=== PATIENT | male | born 1965 | race Caucasian/White ===

== ENCOUNTER 2020-08-08 07:47 | Outpatient (REF) | payer OTHER, SELFPAY | END 2020-08-08 07:48 | disposition home or self-care (01) | LOC: HO.LAB 07:47 | PROVIDERS: PCP Internal Medicine; Visit Provider Internal Medicine | DX: Z20.828 Contact with and (suspected) exposure to other viral communicable diseases (principal) | CPT/HCPCS: C9803; U0003 ==

== ENCOUNTER 2020-08-16 15:19 | Outpatient (REF) | payer OTHER, SELFPAY | END 2020-08-16 15:20 | disposition home or self-care (01) | LOC: HO.LAB 15:19 | PROVIDERS: PCP Internal Medicine; Visit Provider Internal Medicine | DX: Z20.828 Contact with and (suspected) exposure to other viral communicable diseases (principal) | CPT/HCPCS: C9803; U0003 ==

== ENCOUNTER 2020-08-21 06:13 | Outpatient (REF) | payer OTHER, SELFPAY ==
[2020-08-21 07:13] LABS: MANUAL DIFF FLAG NO
[2020-08-21 07:21] LABS: Basophils Absolute Auto 0.1 X10*3/uL (0.0-0.2); Basophils Percent Auto 1.3 % (0-2); Eosinophils Absolute Auto 0.6 X10*3/uL (0.0-0.4); Eosinophils Percent Auto 7.2 % (0-4); Hematocrit 45.1 % (42-52); Hemoglobin 15.3 g/dl (14.0-18.0); Imm Gran Abs Auto 0.04 X10*3/uL (0.00-0.03); Imm Gran Pct Auto 0.5 % (0.0-0.4); Lymphocytes Absolute Auto 3.1 X10*3/uL (1.2-4.9); Lymphocytes Percent Auto 37.1 % (20-40); Mean Corpuscular HGB Conc 33.9 g/dl (31.0-36.0); Mean Corpuscular Hemoglobin 29.2 pg (27.0-33.0); Mean Corpuscular Volume 86.1 fL (80-98); Mean Platelet Volume 10.6 fL (9.4-12.4); Monocytes Absolute Auto 0.8 X10*3/uL (0.1-1.2); Monocytes Percent Auto 9.3 % (2-11); Neutrophils Absolute Auto 3.8 X10*3/uL (2.0-8.3); Neutrophils Percent Auto 44.6 % (45-73); Platelet Count 301 X10*3/uL (160-400); Red Blood Count 5.24 X10*6/uL (4.60-5.80); Red Cell Distribution Width 12.2 % (11.0-16.0); White Blood Count 8.4 X10*3/uL (4.8-10.8)
[2020-08-21 07:43] LABS: Alanine Aminotransferase 29 U/L (0-40); Albumin Level 4.3 g/dL (3.5-5.0); Alkaline Phosphatase 47 U/L (39-117); Anion Gap 13 (12-20); Aspartate Amino Transferase 21 U/L (5-37); Bilirubin Direct 0.3 mg/dL (0.0-0.5); Bilirubin Total 0.9 mg/dL (0.0-1.0); Blood Urea Nitrogen 21 mg/dL (9-16); Carbon Dioxide 26 mmol/L (22-29); Chloride 104 mmol/L (96-108); Cholesterol 173 mg/dL; Estimated Glomerular Filt Rate > 60; Glucose Fasting 99 mg/dL (60-99); HDL Cholesterol 41 mg/dL; LDL Cholesterol Calculated 109 mg/dl; Potassium 4.7 mmol/l (3.3-5.1); Sodium 138 mmol/L (135-145); Total Protein 6.8 g/dL (6.5-8.0); Triglycerides 115 mg/dL
[2020-08-21 08:06] LABS: Prostate Specific Antigen 1.36 ng/mL (<0.05-4.0)
== END 2020-08-21 06:14 | disposition home or self-care (01) ==
LOC: HO.LAB 06:13
PROVIDERS: Visit Provider Internal Medicine
DX: R53.83 Other fatigue (principal); E78.5 Hyperlipidemia, unspecified
CPT/HCPCS: 36415; 80051; 80061; 80076; 82565; 82947; 84153; 84520; 85025

== ENCOUNTER 2020-09-04 07:24 | Outpatient (REF) | payer OTHER, SELFPAY | END 2020-09-04 07:25 | disposition home or self-care (01) | LOC: HO.LAB 07:24 | PROVIDERS: PCP Internal Medicine; Visit Provider Internal Medicine | DX: Z20.828 Contact with and (suspected) exposure to other viral communicable diseases (principal) | CPT/HCPCS: C9803; U0003 ==

== ENCOUNTER 2020-09-30 09:32 | Outpatient (REF) | payer OTHER, SELFPAY | END 2020-09-30 09:33 | disposition home or self-care (01) | LOC: HO.LAB 09:32 | PROVIDERS: Visit Provider Internal Medicine | DX: Z20.822 Contact with and (suspected) exposure to COVID-19 (principal) | CPT/HCPCS: 36415; C9803; U0003 ==

== ENCOUNTER 2020-10-14 06:10 | Outpatient (REF) | payer OTHER, SELFPAY | END 2020-10-14 06:11 | disposition home or self-care (01) | LOC: HO.LAB 06:10 | PROVIDERS: Visit Provider Internal Medicine | DX: Z20.822 Contact with and (suspected) exposure to COVID-19 (principal) | CPT/HCPCS: 36415; C9803; U0003; U0005 ==

== ENCOUNTER 2020-10-16 12:59 | Outpatient (REF) | payer OTHER, SELFPAY ==
--- NOTE | ~2020-10-16 | XR_ITS ---
EXAMINATION: XR CHEST CLINICAL INFORMATION: Fatigue, shortness of breath, cough COMPARISON: Chest radiographs 06/24/2018, 02/05/2014 TECHNIQUE: 2 views of the chest were obtained. FINDINGS: The lungs are clear. There is no airspace consolidation or groundglass opacity or effusion. The heart is normal in size. The hilar and mediastinal contours are normal. No acute bony abnormality. XR/XR chest 2V IMPRESSION: Unremarkable examination.
[2020-10-16 13:53] LABS: MANUAL DIFF FLAG NO
[2020-10-16 14:03] LABS: Basophils Absolute Auto 0.1 X10*3/uL (0.0-0.2); Eosinophils Absolute Auto 0.4 X10*3/uL (0.0-0.4); Eosinophils Percent Auto 3.7 % (0-4); Hematocrit 45.1 % (42-52); Imm Gran Abs Auto 0.04 X10*3/uL (0.00-0.03); Imm Gran Pct Auto 0.4 % (0.0-0.4); Lymphocytes Absolute Auto 3.6 X10*3/uL (1.2-4.9); Lymphocytes Percent Auto 36.6 % (20-40); Mean Corpuscular HGB Conc 33.3 g/dl (31.0-36.0); Mean Corpuscular Hemoglobin 28.2 pg (27.0-33.0); Mean Corpuscular Volume 84.9 fL (80-98); Mean Platelet Volume 10.7 fL (9.4-12.4); Monocytes Absolute Auto 0.6 X10*3/uL (0.1-1.2); Neutrophils Absolute Auto 5.2 X10*3/uL (2.0-8.3); Neutrophils Percent Auto 52.3 % (45-73); Platelet Count 304 X10*3/uL (160-400); Red Blood Count 5.31 X10*6/uL (4.60-5.80); Red Cell Distribution Width 12.1 % (11.0-16.0); White Blood Count 9.9 X10*3/uL (4.8-10.8)
[2020-10-16 14:19] LABS: Anion Gap 13 (12-20); Blood Urea Nitrogen 20 mg/dL (9-16); Calcium 9.4 mg/dL (8.4-10.2); Carbon Dioxide 27 mmol/L (22-29); Chloride 104 mmol/L (96-108); Estimated Glomerular Filt Rate > 60; Glucose Random 118 mg/dL (60-115); Potassium 3.8 mmol/L (3.3-5.1); Sodium 140 mmol/L (135-145)
== END 2020-10-16 13:00 | disposition home or self-care (01) ==
LOC: HO.HMGCX 12:59
PROVIDERS: PCP Internal Medicine; Visit Provider Internal Medicine
DX: R53.83 Other fatigue (principal); R06.02 Shortness of breath; R05 Cough
CPT/HCPCS: 36415; 71046; 80048; 85025

== ENCOUNTER 2020-11-27 13:42 | Outpatient (REF) | payer OTHER, SELFPAY | END 2020-11-27 13:43 | disposition home or self-care (01) | LOC: HO.LAB 13:42 | PROVIDERS: Visit Provider Internal Medicine | DX: Z20.822 Contact with and (suspected) exposure to COVID-19 (principal) | CPT/HCPCS: 36415; C9803; U0003; U0005 ==

== ENCOUNTER 2020-12-05 07:41 | Outpatient (REF) | payer OTHER, SELFPAY ==
[2020-12-05 09:43] LABS: SARS COV2 PCR INHOUSE NEGATIVE (Negative)
== END 2020-12-05 07:42 | disposition home or self-care (01) ==
LOC: HO.LAB 07:41
PROVIDERS: Visit Provider Internal Medicine
DX: Z20.822 Contact with and (suspected) exposure to COVID-19 (principal)
CPT/HCPCS: C9803; U0003

== ENCOUNTER 2020-12-09 08:34 | Outpatient (REF) | payer OTHER, SELFPAY ==
[2020-12-09 11:07] LABS: SARS COV2 PCR INHOUSE POSITIVE (Negative)
== END 2020-12-09 08:35 | disposition home or self-care (01) ==
LOC: HO.LAB 08:34
PROVIDERS: Visit Provider Internal Medicine
DX: Z20.822 Contact with and (suspected) exposure to COVID-19 (principal)
CPT/HCPCS: C9803; U0003

== ENCOUNTER 2021-06-02 14:40 | Outpatient (REF) | payer OTHER, SELFPAY ==
[2021-06-02 16:21] LABS: COVID-19 Test Negative (Negative)
== END 2021-06-02 14:41 | disposition home or self-care (01) ==
LOC: HO.LAB 14:40
PROVIDERS: PCP Internal Medicine; Visit Provider Internal Medicine
DX: Z20.822 Contact with and (suspected) exposure to COVID-19 (principal)
CPT/HCPCS: 36415; 87635; C9803

== ENCOUNTER → 2021-11-05 08:15 | Outpatient (BNVA) | payer OTHER, SELFPAY | PROVIDERS: PCP Internal Medicine; Visit Provider Orthopaedic Surgery | DX: M67.442 Ganglion, left hand (principal); R20.0 Anesthesia of skin | CPT/HCPCS: 20612; 99212 ==

== ENCOUNTER → 2021-12-10 08:32 | Outpatient (BNVA) | payer OTHER, SELFPAY | PROVIDERS: PCP Internal Medicine; Visit Provider Orthopaedic Surgery | DX: Z13.89 Encounter for screening for other disorder (principal) ==

== ENCOUNTER 2022-01-05 12:53 | Outpatient (REF) | payer OTHER, SELFPAY ==
--- NOTE | ~2022-01-05 | US_ITS ---
EXAMINATION: ULTRASOUND EXTREMITY NONVASCULAR CLINICAL INFORMATION: Numbness in the radial left hand distal to the A1 justus area of ring finger. COMPARISON: None TECHNIQUE: Limited imaging through the palmar aspect of 4th and 5th metacarpals were performed. FINDINGS: There is a complex anechoic cystic lesion with internal echoes and mild peripheral vascularity at the base of third and fourth digit. It is approximately 0.3 cm deep to the skin surface at the base of the 3rd and 4th digit, nontender. Question ganglion cyst. US/US extremity nonvascular IMPRESSION: There is a complex cystic lesion with internal echoes at the base of the 3rd and 4th digits/metacarpal likely small ganglion cyst. It corresponds around the A1 justus area of 4th digit.
== END 2022-01-05 12:54 | disposition home or self-care (01) ==
LOC: HO.HMGCX 12:53
PROVIDERS: Visit Provider Orthopaedic Surgery
DX: M79.89 Other specified soft tissue disorders (principal)
CPT/HCPCS: 76882

== ENCOUNTER 2022-07-28 14:29 | Outpatient (REF) | payer OTHER, SELFPAY ==
--- NOTE | ~2022-07-28 | XR_ITS ---
EXAMINATION: XR FOOT, RIGHT CLINICAL INFORMATION: Pain and swelling right foot COMPARISON: None TECHNIQUE: AP, lateral, and oblique views of the right foot. FINDINGS: There is no visible acute fracture, dislocation or subluxation. No bony erosive changes. The soft tissues are normal. There is a small calcaneal heel and retrocalcaneal enthesophytes. The ankle mortise and subtalar joints are normal. XR/XR foot RT min 3V IMPRESSION: Small calcaneal heel and retrocalcaneal enthesophytes. No visible acute fracture, dislocation or subluxation seen.
== END 2022-07-28 14:30 | disposition home or self-care (01) ==
LOC: HO.HMGCX 14:29
PROVIDERS: PCP Internal Medicine; Visit Provider Internal Medicine
DX: M79.671 Pain in right foot (principal); R60.0 Localized edema
CPT/HCPCS: 73630

== ENCOUNTER → 2022-09-23 07:57 | Outpatient (BNVA) | payer OTHER, SELFPAY | PROVIDERS: PCP Internal Medicine; Visit Provider Orthopaedic Surgery | DX: R20.0 Anesthesia of skin (principal) ==

== ENCOUNTER 2022-10-01 05:59 | Day surgery (SDC) | payer OTHER, SELFPAY ==
[2022-09-24 12:40] VITALS: BMI 29.9
--- NOTE | 2022-09-30 09:57 | HO.ANESPROP2 ---
Documented by User: Brigitte Bradley NP 09/30/22 09:58 HPI - Anesthesia Eval Consult details Narrative: 57yo M for Left Hand Excisional Mass biopsy PMFSH Active Problems Active Problems: All Active Problems (Updated 11/05/21 @ 09:08 by Aleyda Madrid MD) Numbness of finger (Acute) Mass of soft tissue of left upper extremity (Acute) Somatic dysfunction of right sacroiliac joint (Acute) Past Medical History Medical History High blood cholesterol High blood pressure Social History Social History Patient Tobacco Use Status: Former Tobacco user Quit Date: 10 years ago Use of substances other than those prescribed or required for medical reasons: No Are you DNR?: No Advance Directives: No Advance Directives Information Provided: Yes Current occupational status: employed Current occupation: Tech/computers/rt hand Meds Allergies Allergy/AdvReac Type Severity Reaction Status Date / Time No Known Allergies Allergy Verified 09/23/22 08:23 Home Medications Medication Instructions Recorded Confirmed Last Taken Type atorvastatin 20 mg tablet 20 mg PO DAILY 03/24/21 03/24/21 Unknown History gabapentin 600 mg tablet 600 mg PO DAILY 03/24/21 03/24/21 Unknown History ibuprofen 800 mg tablet 800 mg PO TID 03/24/21 03/24/21 Unknown History lisinopril 20 mg tablet 20 mg PO DAILY 03/24/21 03/24/21 Unknown History Exam Exam Date and Time: September 30, 2022 0957 Height,Weight and Vital Signs: Height 5 ft 7 in Weight 86.636 kg Assessment and Plan Assessment Anesthesia Assessment: Chart Reviewed Documented by User: Katty Garces MD 10/01/22 08:18 PMFSH Past Medical History Medical History High blood cholesterol High blood pressure Family History Family history of problems with anesthesia: No Surgical History History of Problems with Anesthesia: No Social History Social History Patient Tobacco Use Status: Former Tobacco user Quit Date: 10 years ago Use of substances other than those prescribed or required for medical reasons: No Are you DNR?: No Advance Directives: No Advance Directives Information Provided: Yes Current occupational status: employed Current occupation: Tech/computers/rt hand Meds Allergies Allergy/AdvReac Type Severity Reaction Status Date / Time No Known Allergies Allergy Verified 09/23/22 08:23 Home Medications Medication Instructions Recorded Confirmed Last Taken Type atorvastatin 20 mg tablet 20 mg PO DAILY 03/24/21 03/24/21 Unknown History gabapentin 600 mg tablet 600 mg PO DAILY 03/24/21 03/24/21 Unknown History ibuprofen 800 mg tablet 800 mg PO TID 03/24/21 03/24/21 Unknown History lisinopril 20 mg tablet 20 mg PO DAILY 03/24/21 03/24/21 Unknown History Exam Airway Mallampati Class: II TM Dist: >3cm Neck ROM: Full Heart: rrr Lungs: cta Assessment and Plan Assessment Anesthesia Assessment: Anesthesia Plan Discussed Final Anesthetic Review Family History of Problems with Anesthesia: No History of Problems with Anesthesia: No NPO: Yes ASA Class: II Final Preanesthetic Review: No Changes in Pt Med Stat, Meds/Allgs Chart Reviewed, Consent Obtained/Reviewed and Anes Risks/Benef Reviewed Patient Risk: Low Procedure Risk: Low Anesthetic Plan Anesthetic Plan: GA and Agree w/ Assess. and Plan Disposition: Standard PACU
[2022-10-01 06:10] VITALS: BMI 28.1
[2022-10-01 06:13] VITALS: BP 140/80; PULSE 80; RESP 18; TEMP 36.7; O2SAT 97
--- NOTE | 2022-10-01 07:41 | MHC.SHP ---
Pre-Procedural Eval Section A Date of Service: 10/01/22 The patient is an INPATIENT: No Changes since office visit: No Cold of Flu in the past 2 weeks, No New Medical Problems, No Changes in Medication and No Patient answered all questions The History & Physical has been completed within 30 days and I have reviewed it.: No Section B Chief Complaint: left hand mass Allergies: Allergies Allergy/AdvReac Type Severity Reaction Status Date / Time No Known Allergies Allergy Verified 09/23/22 08:23 Plan I have reviewed the history and physical and performed a pertinent physical examination on my patient. No changes have occurred unless specified. Time Spent With Patient Time: Total time managing care of this patient today ____ minutes.
--- NOTE | 2022-10-01 07:42 | W.PM.OPN ---
Operative Note Operative Note Date of Service: 10/01/22 Narrative: Operative Note Narrative: Preop diagnosis: 1. Left soft tissue hand mass Postop diagnosis: Same Procedure: 1. Left soft tissue hand mass excisional biopsy Surgeon: Aleyda Madrid MD Anesthesia: General Anesthesia Findings: There was a 1.5 cm diameter cystic appearing mass filled with hematoma and dark purple blood found in the volar aspect of the 3rd web space. No major vessel was found to be feeding this mass. The radial digital nerve to the ring finger was stretched over the volar ulnar aspect of the mass, and its axons were somewhat splayed. Implants: none Tourniquet time: 26 minutes EBL: 5.0 ml Specimen: left soft tissue hand mass, possible pseudoaneurysm Drains: None Complications: None Disposition: Brought to the recovery room in stable condition Plan: Follow-up in 10-14 days for wound check, suture removal and to check pathology Indications: The patient is a 57 year old man with a left soft tissue hand mass . The risks and benefits of operative treatment, including but not limited to risk of damage to blood vessels, nerves, tendons, infection, recurrence, persistent pain or numbness, incomplete resolution of preoperative symptoms, or need for further surgery were discussed with the patient and they wished to proceed with surgery. Procedure: Once consent was obtained patient was brought back to the operating suite and placed in the operating table in a supine position. . Perioperative antibiotics and anesthesia was administered by the anesthesia team. A tourniquet was applied to the proximal aspect of the left upper extremity and the limb was prepped and draped in a standard surgical fashion. The limb was elevated exsanguinated with Esmarch bandage and the tourniquet inflated to 250 mm of mercury for a total tourniquet time of 26 minutes. A 2 cm oblique incision was made centered over the patient's left hand mass in the volar aspect of the 3rd webspace. The incision was made through the skin to the subcutaneous tissues using a 15. Blade. I then dissected down to the level of the mass. The mass was approximately 1.5 to 2 cm in diameter, somewhat spherical and filled with hematoma and dark purple blood. The radial digital nerve to the ring finger was noted to be stretched over the volar ulnar aspect of the mass and its axons were noted to be somewhat splayed. The radial digital nerve to the ring finger was carefully dissected off of the mass and pushed ulnarly to his more anatomic location where it was not under tension. The mass itself was dissected down to what initially appeared to be a stalk deep in the volar aspect of the 3rd web space. Along this we found perhaps 2 or 3 smaller dark blood filled spherical masses each measuring perhaps 3 mm or so in diameter. We did not find any attachment to a larger vessel, neither the common digital artery nor to either of the digital arteries to the ring or middle fingers. We did isolate down to some very small capillary like feeder vessels and this was cauterized with bipolar electrocautery. The mass was then removed and placed on the back table to be sent for histopathology. No other masses were appreciated. At this point the tourniquet was deflated and hemostasis obtained with a brief period of local pressure . The wound was copiously irrigated with normal saline. The skin edges were reapproximated with 5-0 nylon suture. The wound was infiltrated with some 1% lidocaine with epinephrine for postop pain control and a sterile dressing was applied. The patient appears to have tolerated the procedure well and with no complications. All digits were well vascularized conclusion of the case.
[2022-10-01 08:57] VITALS: BP 136/80; PULSE 95; RESP 16; TEMP 36.8; O2SAT 96
[2022-10-01 09:02] VITALS: BP 133/81; PULSE 90; RESP 16; O2SAT 93
[2022-10-01 09:07] VITALS: BP 136/66; PULSE 86; RESP 16; O2SAT 95
[2022-10-01 09:12] VITALS: BP 141/90; PULSE 81; RESP 16; O2SAT 97
[2022-10-01 09:27] VITALS: BP 127/81; PULSE 76; RESP 16; TEMP 36.8; O2SAT 98
== END 2022-10-01 09:59 ==
PROVIDERS: PCP Internal Medicine; Visit Provider Orthopaedic Surgery
PROC: (CPT 11422; principal; 2022-10-01 07:30)
DX: M79.89 Other specified soft tissue disorders (principal); I10 Essential (primary) hypertension; R20.0 Anesthesia of skin; E78.00 Pure hypercholesterolemia, unspecified
CPT/HCPCS: 11422; 88304; J0690; J1100; J2405; J2795; J3010

== ENCOUNTER → 2022-10-14 08:36 | Outpatient (BNVA) | payer OTHER, SELFPAY | PROVIDERS: PCP Internal Medicine; Visit Provider Orthopaedic Surgery | DX: Z13.89 Encounter for screening for other disorder (principal) ==

== ENCOUNTER → 2022-11-25 08:19 | Outpatient (BNVA) | payer OTHER, SELFPAY | PROVIDERS: PCP Internal Medicine; Visit Provider Orthopaedic Surgery | DX: Z13.89 Encounter for screening for other disorder (principal) ==

== ENCOUNTER 2022-12-22 08:35 | Outpatient (REF) | payer OTHER, SELFPAY ==
--- NOTE | ~2022-12-22 | XR_ITS ---
EXAMINATION: XR HAND, LEFT CLINICAL INFORMATION: Left hand pain COMPARISON: None available. TECHNIQUE: PA, lateral, and oblique views of the left hand. FINDINGS: No fracture or dislocation. Joint space narrowing throughout the interphalangeal joints. Osteophytes throughout the hand. The soft tissues are unremarkable. XR/XR hand LT min 3V IMPRESSION: No acute fracture or malalignment. Degenerative changes throughout the hand.
== END 2022-12-22 08:36 | disposition home or self-care (01) ==
LOC: HO.HOSX 08:35
PROVIDERS: PCP Internal Medicine; Visit Provider Orthopaedic Surgery
DX: M79.642 Pain in left hand (principal)
CPT/HCPCS: 73130

== ENCOUNTER 2023-01-26 09:35 | Outpatient (REF) | payer OTHER, SELFPAY ==
--- NOTE | ~2023-01-26 | MR_ITS ---
EXAMINATION: MR HAND WITHOUT AND WITH CONTRAST, LEFT CLINICAL INFORMATION: Lump between the 3rd and 4th metacarpophalangeal joints. Finger numbness. Surgery in September of 2022. Pain and numbness. COMPARISON: Left hand radiographs dated 12/22/2022. TECHNIQUE: Multisequence MR imaging of the left hand was obtained before and after the IV administration of 8.5 mL Gadavist contrast on a high-field strength scanner. FINDINGS: BONE: No acute fracture or dislocation. No marrow edema or evidence of acute osseous injury. Mild articular cartilage thinning with tiny marginal osteophytes within the interphalangeal joints, better seen on the prior radiographs. No concerning lytic or blastic osseous lesion. No abnormal postcontrast marrow enhancement. MUSCLES/TENDONS: The visualized muscles and tendons are intact. No transverse tendon tear or tendon retraction. No postcontrast enhancement. LIGAMENTS: The collateral ligaments are grossly intact. SOFT TISSUES: Interposed between the 3rd and 4th proximal phalangeal bases there is a heterogeneously isointense T1 and hyperintense T2 focus which demonstrates thin, somewhat irregular peripheral postcontrast enhancement. Overall this measures approximately 2.5 x 1.5 x 2.1 cm (AP x ML x CC). No adjacent inflammatory change. No additional soft tissue mass or fluid collection. MR/MR hand LT wo/w con IMPRESSION: 1. Interposed between the 3rd and 4th proximal phalangeal bases there is a heterogeneously enhancing cystic focus measuring up to 2.5 cm. No adjacent inflammatory change. Differential diagnosis includes a giant cell tumor of the tendon sheath and complex ganglion cyst. The mass abuts the volar neurovascular bundle and a peripheral nerve sheath tumor or vascular lesion could also be considered. 2. Mild osteoarthritis within the interphalangeal joints, better seen on the prior radiographs. 3. No acute osseous abnormality. No concerning lytic or blastic osseous lesion.
== END 2023-01-26 09:36 | disposition home or self-care (01) ==
LOC: HO.MRI 09:35
PROVIDERS: PCP Internal Medicine; Visit Provider Orthopaedic Surgery
DX: R20.0 Anesthesia of skin (principal); M79.89 Other specified soft tissue disorders
CPT/HCPCS: 73220; A9585

== ENCOUNTER 2023-03-17 08:13 | Outpatient (AMB) | payer OTHER, SELFPAY ==
--- NOTE | 2023-03-17 08:19 | MHC.OFFVIS ---
Intake Vital Signs 03/17/23 08:19 Height 5 ft 6 in Intake Visit Reasons: MRI left hand review Intake Note: Bob 58 yr old male presents today for his review of his left hand. States his discomfort is mainly in the morning and night time. Allergies No Known Allergies Allergy (Verified 03/17/23 08:19) [facility] MRI left hand review HPI Details Bob is a 58 year old right hand dominant man who presents for an MRI review of his left hand. He has a recurrent mass on his left hand, S/P mass excision, DOS: 10/01/22. Interestingly, this mass recurred within a few weeks of surgery. ? He says the masses on his hand are tender. He says the recurrent mass has been changing in size. When it is smaller it is less visible on the palmar side of his hand. Most of his discomfort occurs in the mornings and at night. He says the mass occasionally takes on a purplish tinge. he continues to have numbness in his ring finger, worse in the mornings. This has been present prior to his excision surgery, and he has no numbness in any other digits He says he has been able to remain active and has been golfing often [facility] Medical History High blood cholesterol High blood pressure Social History Patient Tobacco Use Status: Former Tobacco user Quit Date: 10 years ago Current occupational status: employed Current occupation: Tech/computers/rt hand Review of Systems Const All systems reviewed & are unremarkable except as noted in HPI and below Physical Exam Const General: no acute distress and alert Orientation/consciousness: patient oriented x3 Neuro General: patient oriented x3 Extrem Other: Evaluation of Left Upper Extremity: The patient is alert, oriented, and in no acute distress Neuro: He still has numbness in the radial digital nerve distribution to the left ring finger. Intact sensation to the ulnar digital nerve distribution. He also has intact sensation to the ulnar digital nerve distribution of the middle finger Vascular: Cap refill brisk ROM: He can make a fist and extend all his digits No swelling, erythema, or warmth No overlying skin changes. He has a recurrence of a mass on the volar aspect of his hand, radial to the A1 justus area at the base of the ring finger. The mass is also extending into the dorsal aspect of his 3rd webspace, measuring 1.2cm in diameter. It is mildly tender. I can push between the two masses and feel they are connected Left hand MRI FINDINGS: BONE: No acute fracture or dislocation. No marrow edema or evidence of acute osseous injury. Mild articular cartilage thinning with tiny marginal osteophytes within the interphalangeal joints, better seen on the prior radiographs. No concerning lytic or blastic osseous lesion. No abnormal postcontrast marrow enhancement. MUSCLES/TENDONS: The visualized muscles and tendons are intact. No transverse tendon tear or tendon retraction. No postcontrast enhancement. LIGAMENTS: The collateral ligaments are grossly intact. SOFT TISSUES: Interposed between the 3rd and 4th proximal phalangeal bases there is a heterogeneously isointense T1 and hyperintense T2 focus which demonstrates thin, somewhat irregular peripheral postcontrast enhancement. Overall this measures approximately 2.5 x 1.5 x 2.1 cm (AP x ML x CC). No adjacent inflammatory change. No additional soft tissue mass or fluid collection. IMPRESSION: ? 1.? Interposed between the 3rd and 4th proximal phalangeal bases there is a heterogeneously enhancing cystic focus measuring up to 2.5 cm. No adjacent inflammatory change. Differential diagnosis includes a giant cell tumor of the tendon sheath and complex ganglion cyst. The mass abuts the volar neurovascular bundle and a peripheral nerve sheath tumor or vascular lesion could also be considered. ? 2.? Mild osteoarthritis within the interphalangeal joints, better seen on the prior radiographs. ? 3.? No acute osseous abnormality. No concerning lytic or blastic osseous lesion. Dictated By: Jose Alfredo Noriega MD 02/02/23 Pathology report, 10/01/22 Diagnosis Soft tissue, left hand, excision: Blood clot with organization; small focus of benign adipose tissue. Psych Appearance: grossly normal Affect: normal affect Attitude: cooperative Results Reviewed Results Reviewed: 03/17/23 08:56 Lidocaine HCl 2 % MPF [Xylocaine 2 % MPF] 5 ml .ROUTE .STK-MED ONE Assessment & Plan Assessment & Plan (1) Numbness of finger: Code(s): R20.0 - Anesthesia of skin (2) Mass of soft tissue of left upper extremity: Code(s): M79.89 - Other specified soft tissue disorders Plan Assessment and plan: 1. Left hand volar and dorsal 3rd webspace mass, recurrence S/P excision Date of Aspiration: 11/05/21 DOS: 10/01/22 Pathology returned showing this was a blood clot, etiology unclear Radial and just distal to the A1 justus area of the left ring finger The mass also appears to be extending into the dorsal aspect of the 3rd webspace. I educated him about this condition and reviewed his MRI I recommend aspiration today, and repeat surgery in the future. The patient is in agreement Aspiration #1: The risks and benefits of aspiration, including but not limited to risk of damage to blood vessels, nerves, tendons, infection, failure to improve symptoms, increased pain, and possible need for further aspirations or surgical intervention. After obtaining written consent, I sterilely prepped the area over the left hand mass. I then injected subcutaneously with a small amount 1% lidocaine. I then passed an 18 gauge needle into the mass. Initially when applying negative pressure there was no fluid removed, indicating a solid component to the mass, but eventually I removed ~1mL of red blood. The patient tolerated this well and with no complications. The risks and benefits of operative treatment were discussed with the patient and the patient wishes to proceed with surgery. These risks include, but are not limited to risk of damage to blood vessels, nerves, tendons, infection, recurrence, incomplete relief of preoperative symptoms, persistent pain, possible need for further surgery and the risks associated with regional blocks and anesthesia. The plan is to take the patient to the operating room sometime in the next few weeks for the following procedures: 1. Left hand recurrent mass repeat excision, under general All of the preoperative paperwork including the consent was filled out today. All the patient's questions were answered. The patient understands that they will be contacted by our corporate scheduler soon to schedule this procedure. He would like to have this done sometime in June, after golf season He denies Diabetes, blood thinners, asthma, heart, lung, kidney issues 2. Left ring finger radial sided numbness No numbness on the ulnar aspect of the digit, or the ulnar aspect of the middle finger. This was present prior to the excisional biopsy on 10/01/2022. No change following the removal of his ring finger mass May be possible neuropraxia We will manage this conservatively Please note that greater than 30 minutes was spent with this patient going over the history, evaluating the patient and radiographs, formulating possible treatment options, discussing them with the patient, and documenting the visit. Scribed for Aleyda Mardid MD by Celestino Bello, medical office technologist, on 03/17/23 at 9:25 AM, EST. Coding Level of Care Code Est Pt Level 4 (69896) Diagnoses Numbness of finger R20.0 Mass of soft tissue of left upper extremity M79.89
== END 2023-03-17 09:23 | disposition home or self-care (01) ==
PROVIDERS: PCP Internal Medicine; Visit Provider Orthopaedic Surgery
DX: R22.32 Localized swelling, mass and lump, left upper limb (principal); R20.0 Anesthesia of skin; M79.89 Other specified soft tissue disorders
CPT/HCPCS: 10160; 99214

== ENCOUNTER → 2023-03-17 08:13 | Outpatient (BNVA) | payer OTHER, SELFPAY | PROVIDERS: PCP Internal Medicine; Visit Provider Orthopaedic Surgery ==

== ENCOUNTER 2024-06-09 08:15 | Day surgery (SDC) | payer OTHER, SELFPAY ==
[2024-06-08 07:03] VITALS: BMI 30.1
--- NOTE | 2024-06-08 09:49 | P.CONAN_ITS ---
Documented by User: Brigitte Bradley NP 06/08/24 09:52 HPI - Anesthesia Eval Consult details Narrative: 59yo M for Colonoscopy PMFSH Active Problems Active Problems: All Active Problems Numbness of finger (Acute) Mass of soft tissue of left upper extremity (Acute) Somatic dysfunction of right sacroiliac joint (Acute) Past Medical History Medical History (Updated 06/08/24 @ 06:58 by Elvira Schmidt RN) Tarsal tunnel syndrome Seasonal allergies Deviated septum High blood pressure High blood cholesterol Family History Family history of problems with anesthesia: No Surgical History Surgical History (Updated 06/08/24 @ 06:59 by Elvira Schmidt RN) Hx of appendectomy Hx of cervical spine surgery H/O colonoscopy History of Problems with Anesthesia: No Social History Social History Patient Tobacco Use Status: Former Tobacco user Advance Directives: No Advance Directives Information Provided: Yes Current occupational status: employed Current occupation: Tech/computers/rt hand Meds Allergies Allergy/AdvReac Type Severity Reaction Status Date / Time No Known Allergies Allergy Verified 06/09/24 08:35 Home Medications ?Medication ?Instructions ?Recorded ?Confirmed ?Last Taken ?Type atorvastatin 20 mg tablet 20 mg PO DAILY 03/24/21 06/09/24 Unknown History gabapentin 600 mg tablet 600 mg PO DAILY 03/24/21 06/09/24 Unknown History ibuprofen 800 mg tablet 800 mg PO TID PRN Pain 03/24/21 06/09/24 Unknown History lisinopril 20 mg tablet 20 mg PO DAILY 03/24/21 06/09/24 Unknown History fexofenadine 180 mg tablet 180 mg PO DAILY PRN Allergy 06/08/24 06/09/24 Unknown History Symptoms multivitamin 1 tab PO DAILY 06/08/24 06/09/24 Unknown History Exam Height,Weight and Vital Signs: Height 5 ft 7 in Weight 87.09 kg Assessment and Plan Assessment Anesthesia Assessment: Chart Reviewed Final Anesthetic Review Family History of Problems with Anesthesia: No History of Problems with Anesthesia: No Documented by User: Pratima Goldberg MD 06/09/24 08:53 PMFSH Past Medical History Medical History (Updated 06/08/24 @ 06:58 by Elvira Schmidt RN) Tarsal tunnel syndrome Seasonal allergies Deviated septum High blood pressure High blood cholesterol Surgical History Surgical History (Updated 06/08/24 @ 06:59 by Elvira Schmidt RN) Hx of appendectomy Hx of cervical spine surgery H/O colonoscopy Social History Social History Patient Tobacco Use Status: Former Tobacco user Advance Directives: No Advance Directives Information Provided: Yes Current occupational status: employed Current occupation: Tech/computers/rt hand Meds Allergies Allergy/AdvReac Type Severity Reaction Status Date / Time No Known Allergies Allergy Verified 06/09/24 08:35 Home Medications ?Medication ?Instructions ?Recorded ?Confirmed ?Last Taken ?Type atorvastatin 20 mg tablet 20 mg PO DAILY 03/24/21 06/09/24 Unknown History gabapentin 600 mg tablet 600 mg PO DAILY 03/24/21 06/09/24 Unknown History ibuprofen 800 mg tablet 800 mg PO TID PRN Pain 03/24/21 06/09/24 Unknown History lisinopril 20 mg tablet 20 mg PO DAILY 03/24/21 06/09/24 Unknown History fexofenadine 180 mg tablet 180 mg PO DAILY PRN Allergy 06/08/24 06/09/24 Unknown History Symptoms multivitamin 1 tab PO DAILY 06/08/24 06/09/24 Unknown History Exam Airway Mallampati Class: II TM Dist: >3cm Neck ROM: Full Assessment and Plan Assessment Anesthesia Assessment: Anesthesia Plan Discussed Final Anesthetic Review NPO: Yes ASA Class: II Final Preanesthetic Review: No Changes in Pt Med Stat, Meds/Allgs Chart Review ed, Consent Obtained/Reviewed and Anes Risks/Benef Reviewed Patient Risk: Low Procedure Risk: Low Anesthetic Plan Anesthetic Plan: TIVA Disposition: Standard PACU
[2024-06-09 08:33] VITALS: BMI 28.2
[2024-06-09 08:57] VITALS: BP 105/85; PULSE 80; RESP 16; TEMP 37; O2SAT 98
--- NOTE | 2024-06-09 09:18 | MHC.SHP ---
Pre-Procedural Eval Section A - 24 Hr Update-Section A only Date of Service: 06/09/24 The patient is an INPATIENT: No The patient has been examined within 24 hours of the surgical procedure. The History & Physical has been completed within 30 days and I have reviewed it.: Yes Section B - Complete if H&P > 30 days Chief Complaint: hx malignant neoplasm,screening Allergies: Allergies Allergy/AdvReac Type Severity Reaction Status Date / Time No Known Allergies Allergy Verified 06/09/24 08:35 Plan I have reviewed the history and physical and performed a pertinent physical examination on my patient. No changes have occurred unless specified. Time Spent With Patient Time: Total time managing care of this patient today ____ minutes.
[2024-06-09] MEDS: Lactated Ringers 1,000 ML 100 ML IVCONT (09:19)
[2024-06-09 09:55] VITALS: BP 108/74; PULSE 80; RESP 16; TEMP 36.2; O2SAT 96
[2024-06-09 10:10] VITALS: BP 131/76; PULSE 72; RESP 16; TEMP 36.2; O2SAT 96
--- NOTE | 2024-06-09 11:34 | OP_ITS ---
DATE OF SERVICE: 06/09/2024 SURGEON: Erick Guadarrama MD INDICATIONS: Colon cancer screening. PREOPERATIVE DIAGNOSIS: POSTOPERATIVE DIAGNOSIS: PROCEDURE PERFORMED: Colonoscopy to the terminal ileum with snare polypectomy. ESTIMATED BLOOD LOSS: COMPLICATIONS: ANESTHESIA: Monitored anesthesia care. ASSISTANTS: SPECIMENS: DESCRIPTION OF PROCEDURE: History and physical performed. The risks and benefits of the procedure were explained to the patient. Informed consent was obtained. The patient was placed in the left lateral decubitus position. A digital rectal exam was performed and was found to be normal. The Olympus pediatric videocolonoscope was introduced into the rectum and advanced to the cecum. The cecum was identified by transillumination, palpation, and identification of ileocecal valve. Examination was performed. The scope was removed. He tolerated the procedure well and was returned to Recovery in stable condition. FINDINGS: The terminal ileum was normal. The visualized colonic mucosa was within normal limits without evidence of masses or ulcers. In the cecum, was a less than 10 mm sessile polyp, which was removed with a cold snare and recovered via suction. No other polyps were identified. There was mild sigmoid diverticulosis. Retroflexed examination showed some moderate-sized internal hemorrhoids. IMPRESSION: Colon polyp. RECOMMENDATIONS: Follow up with the biopsy results. MD RIVAS Garcia/JOSSELYN / [id number]
== END 2024-06-09 10:45 | disposition home or self-care (01) ==
PROVIDERS: PCP Internal Medicine; Visit Provider Internal Medicine Gastroenterology
PROC: 0DJD8ZZ Inspection of Lower Intestinal Tract, Via Natural or Artificial Opening Endoscopic (ICD-10-PCS; CPT 45378; principal; 2024-06-09 09:20)
DX: Z12.11 Encounter for screening for malignant neoplasm of colon (principal); D12.0 Benign neoplasm of cecum; K57.30 Diverticulosis of large intestine without perforation or abscess without bleeding; K64.8 Other hemorrhoids; Z86.0101 Personal history of adenomatous and serrated colon polyps; Z80.0 Family history of malignant neoplasm of digestive organs; I10 Essential (primary) hypertension; E78.00 Pure hypercholesterolemia, unspecified; Z87.891 Personal history of nicotine dependence; Z79.02 Long term (current) use of antithrombotics/antiplatelets; Z79.899 Other long term (current) drug therapy
CPT/HCPCS: 45385; 88305; J2003; J2704